=== PATIENT | male | born 1980 | race Caucasian/White ===

== ENCOUNTER 2020-11-10 21:35 | Emergency (ER) | payer OTHER ==
[~2020-11-10] VITALS: Ht 170.2 cm; Wt 114.0 kg
[2020-11-10] MEDS ORDERED: KETOROLAC 15MG/ML VIAL IM ONE (22:30)
[2020-11-10] MEDS ORDERED: HYDROCODONE/ACETAMINOPHEN 5/325MG TABLET PO ONE (23:30)
[2020-11-10 23:40] VITALS: BP 169/110
[2020-11-10] MEDS ORDERED: HYDR-4346 MT (23:43)
== END 2020-11-11 01:02 | disposition home or self-care (01) ==
LOC: ER 21:35
DX: M25.512 Pain in left shoulder (principal); R51.9 Headache, unspecified; M54.2 Cervicalgia; R03.0 Elevated blood-pressure reading, without diagnosis of hypertension; V49.49XA Driver injured in collision with other motor vehicles in traffic accident, initial encounter; Y93.89 Activity, other specified; Y92.410 Unspecified street and highway as the place of occurrence of the external cause
CPT/HCPCS: 73030; 96372; 99283; J1885